=== PATIENT | female | born 1950 | race Caucasian/White ===

== ENCOUNTER 2016-08-18 16:15 | Emergency (ER) | payer OTHER ==
--- NOTE | 2016-08-18 16:41 | UC ---
Eye Complaint HPI - HPI Summary HPI Summary: complaint of right eye irritation for over 1 week feels itchy and irrigated her eye and wore a ptch for several days last night eye was tearing senstive to the light denies vision changes for the last 2 days it feels irritated and feels like something is in her eye occasional painful sensation that lasts for a couple of seconds used a warm compress ast night doesn't wear contacts left eye is starting to look red to her - History of Current Complaint Stated Complaint: RT EYE IRRITATION Time Seen by Provider: 08/18/16 16:30 Hx Obtained From: Patient - Allergies/Home Medications Allergies/Adverse Reactions: Allergies Allergy/AdvReac Type Severity Reaction Status Date / Time No Known Allergies Allergy Verified 08/18/16 16:37 Home Medications: Home Medications Aspirin EC Low Dose* [Ecotrin EC Low Dose 81 MG*] 81 mg PO DAILY 08/18/16 [ History Confirmed 08/18/16] Atorvastatin* [Lipitor 20 MG*] 20 mg PO DAILY 08/18/16 [History Confirmed ] Vit-D 50,000 units PO WEEKLY 08/18/16 [History] PMH/Surg Hx/FS Hx/Imm Hx Previously Healthy: Yes Endocrine History: Dyslipidemia Cardiovascular History: Hypertension - Family History Known Family History: Negative: Cardiac Disease, Hypertension, Diabetes - Social History Occupation: Retired Lives: With Family Review of Systems Constitutional: Negative Skin: Negative Eyes: Eye Redness ENT: Negative, Dental Pain Cardiovascular: Negative Gastrointestinal: Negative Genitourinary: Negative Motor: Negative Neurovascular: Negative Musculoskeletal: Negative Neurological: Negative Psychological: Negative All Other Systems Reviewed And Are Negative: Yes Physical Exam Triage Information Reviewed: Yes Appearance: No Pain Distress, Well-Nourished Vital Signs Reviewed: Yes Eyes: Positive: Conjunctiva Inflamed - bilateral, Other: - right eye observed under fluoriscine- no abrasions, foreign bobies or other abnormalities ENT: Positive: Pharynx normal, TMs normal Neck: Positive: No Lymphadenopathy Respiratory: Positive: Lungs clear, Normal breath sounds, No respiratory distress, No accessory muscle use Cardiovascular: Positive: RRR, No Murmur, Pulses Normal Musculoskeletal: Positive: No Edema Neurological: Positive: Alert Psychological Exam: Normal Skin Exam: Normal Eye Complaint Course/Dx - Differential Dx/Diagnosis Differential Diagnosis/HQI/PQRI: Conjunctivitis, Corneal Abrasion Provider Diagnoses: conjunctivitis Discharge - Discharge Plan Condition: Stable Disposition: HOME Prescriptions: Tobramycin 0.3% OPHTH.MIKE* 1 drop BOTH EYES Q4H #1 btl Patient Education Materials: Conjunctivitis (ED) Referrals: Kacie Araiza MD [Medical Doctor] - Additional Instructions: Please start antibiotic drops as directed Increase fluids and rest Take acetaminophen or ibuprofen for fever or pain Please review your discharge instructions. If your symptoms do not improve please call your primary care provider or return to urgent care.
[2016-08-18] MEDS ORDERED: Fluorescein Sodium TOPICAL* 1 MG TEST OPHTHALMIC ONE (16:49)
[2016-08-18] MEDS ORDERED: Tetracaine 0.5% OPTH.SOL 4 ML* 1 DROP BTL RIGHT EYE ONE (16:50)
[2016-08-18] MEDS ORDERED: BSS OPTH.SOL* BTL OPHTHALMIC ONE (16:50)
== END 2016-08-18 17:29 | disposition home or self-care (01) ==
LOC: UCCORT 16:15
DX: H10.9 Unspecified conjunctivitis (principal); I10 Essential (primary) hypertension
CPT/HCPCS: 99201; A9270-GY; G0463